=== PATIENT | male | born 2000 | race Caucasian/White ===

== ENCOUNTER 2020-10-17 17:47 | Emergency (ER) | payer OTHER ==
--- NOTE | 2020-10-17 19:48 | EDM.PDOC ---
ED HPI GENERAL MEDICAL PROBLEM - General Chief Complaint: ENT Problem Stated Complaint: LEFT SIDE BOTTOM SORE, PAIN Time Seen by Provider: 10/17/20 19:06 Source of Information: Reports: Patient, RN History Limitations: Reports: No Limitations - History of Present Illness INITIAL COMMENTS - FREE TEXT/NARRATIVE: 19-year-old male who presents to the ER with complaints of a sore at the back of his throat that has been ongoing for a week. 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 He states the canker sore at the back of his throat causes discomfort with eating. He denies any fevers , chills, cough, cold, shortness of breath, chest pain, palpitation, or abdominal issues at this time. He also complains of mild sore throat. No pain modalities have been applied. Left Lower Gums Pain Score (Numeric/FACES): 6 - Related Data Allergies Allergy/AdvReac Type Severity Reaction Status Date / Time No Known Allergies Allergy Verified 10/17/20 18:04 Past Medical History HEENT History: Reports: None Cardiovascular History: Reports: None Respiratory History: Reports: None Gastrointestinal History: Reports: None Genitourinary History: Reports: None Musculoskeletal History: Reports: None Neurological History: Reports: None Psychiatric History: Reports: ADHD Endocrine/Metabolic History: Reports: None Hematologic History: Reports: None Immunologic History: Reports: None Oncologic (Cancer) History: Reports: None Dermatologic History: Reports: None - Infectious Disease History Infectious Disease History: Reports: None - Past Surgical History Head Surgeries/Procedures: Reports: None Social & Family History - Family History Family Medical History: No Pertinent Family History - Tobacco Use Tobacco Use Status *Q: Current Some Day Tobacco User Years of Tobacco use: 2 Packs/Tins Daily: 0.1 - Caffeine Use Caffeine Use: Reports: Energy Drinks, Tea - Recreational Drug Use Recreational Drug Use: No ED ROS ENT - Review of Systems Review Of Systems: Comprehensive ROS is negative, except as noted in HPI. ED EXAM, ENT - Physical Exam Exam: See Below Exam Limited By: No Limitations General Appearance: Alert, No Apparent Distress Eye Exam: Left Eye: Proptosis Ears: Normal External Exam, Normal Canal, Hearing Grossly Normal, Normal TMs Nose: Normal Inspection, Normal Mucousa, No Blood Mouth/Throat: Normal Inspection, Normal Gums, Normal Lips, Normal Oropharynx, Normal Teeth, Pharyngeal Erythema (mild), Tonsillar Exudates, Other (round ulceration noted on the right side of the throat) Neck: Non-Tender, Lymphadenopathy (L) (mild) Respiratory/Chest: No Respiratory Distress, Lungs Clear, Normal Breath Sounds, No Accessory Muscle Use, Chest Non-Tender Cardiovascular: Regular Rate, Rhythm GI/Abdominal: Normal Bowel Sounds, Soft, Non-Tender Neurological: Alert, Oriented Psychiatric: Normal Affect, Normal Mood Skin: Intact Course - Vital Signs Last Recorded V/S: Last Vital Signs Temp 97.4 F 10/17/20 18:05 Pulse 76 10/17/20 18:05 Resp 18 10/17/20 18:05 BP 119/66 10/17/20 18:05 Pulse Ox 99 10/17/20 18:05 - Re-Assessments/Exams Free Text/Narrative Re-Assessment/Exam: Reviewed exam findings and lab results with patient. Strep trust negative. Encouraged him to push fluids, salt gargles 2 -3 times day. Departure - Departure Time of Disposition: 19:43 Disposition: Home, Self-Care 01 Condition: Good Clinical Impression: Canker sore, Sore throat - Discharge Information Instructions: Canker Sores, Sore Throat, [id number] Referrals: PCP,None [Primary Care Provider] - Forms: ED Department Discharge Additional Instructions: Encouraged patient to push fluids, ibuprofen 600 mg Q6 hours with meals prn and Tylenol 650 every 6 hours as needed. Also recommended salt gargles 2-3 times daily. Follow-up with PCP in 3 days. Sepsis Event Note (ED) - Evaluation Sepsis Screening Result: No Definite Risk
== END 2020-10-17 20:12 | disposition home or self-care (01) ==
LOC: DL.ED 17:47
DX: J02.9 Acute pharyngitis, unspecified (principal); K12.0 Recurrent oral aphthae; Z72.0 Tobacco use
CPT/HCPCS: 87081; 87430; 99282; 99283